=== PATIENT | male | born 1985 | race Caucasian/White ===

== ENCOUNTER 2018-08-09 15:04 | Emergency (ER) | payer OTHER ==
[~2018-08-09] VITALS: Ht 172.7 cm; Wt 127.0 kg
[2018-08-09] MEDS ORDERED: ACETAMINOPHEN 325 MG TAB ONE (17:02)
[2018-08-09] MEDS ORDERED: SODIUM CHLORIDE 0.9% 1000ML 1,000 ML ONE (17:02)
[2018-08-09] MEDS ORDERED: SODIUM CHLORIDE 0.9% 1000ML 1,000 ML IV ONE (17:15)
[2018-08-09 17:23] LABS: BASOPHILS % 0.2 % (0.0-1.0); EOSINOPHILS # (AUTO) 0.1 (0.0-0.4); EOSINOPHILS % 1.1 % (0.0-6.0); HEMATOCRIT 40.4 % (38.2-49.6); HEMOGLOBIN 13.8 g/dL (14.0-18.0); LYMPHOCYTES # (AUTO) 1.8 (1.0-3.2); LYMPHOCYTES % 27.3 % (18.0-39.1); MEAN CORPUSCULAR HEMOGLOBIN 29.3 pg (28-32); MEAN CORPUSCULAR HGB CONC 34.2 g/dL (31-35); MEAN CORPUSCULAR VOLUME 85.8 fL (81-99); MONOCYTES # (AUTO) 0.6 (0.2-0.8); MONOCYTES % 9.2 % (4.4-11.3); PLATELET COUNT 259 x10e3/uL (140-360); RED BLOOD COUNT 4.71 x10e6/uL (4.3-5.7); RED CELL DISTRIBUTION WIDTH 12.4 % (11.7-14.4)
[2018-08-09 17:24] LABS: BILIRUBIN,URINE NEGATIVE (NEGATIVE); CLARITY,URINE SL CLOUDY (CLEAR); COLOR,URINE YELLOW (YELLOW); KETONES,URINE NEGATIVE (NEGATIVE); LEUKOCYTE ESTERASE ,URINE TRACE (NEGATIVE); NITRITE,URINE NEGATIVE (NEGATIVE); PROTEIN,URINE DIPSTICK NEGATIVE (NEGATIVE); URINE UROBILINOGEN 1 mg/dL (0.2 - 1)
[2018-08-09 17:58] LABS: ALANINE AMINOTRANSFERASE 57 IU/L (0-55); ALBUMIN 3.5 g/dL (3.5-5.0); ALBUMIN/GLOBULIN RATIO 0.7 (0.8-2.0); ALKALINE PHOSPHATASE 40 IU/L (40-150); ANION GAP 15.7 mmol/L (8-16); BLOOD UREA NITROGEN 7 mg/dL (7-26); BUN/CREATININE RATIO 7 (6-25); CALCIUM 9.4 mg/dL (8.4-10.2); CARBON DIOXIDE 26 mmol/L (22-29); CHLORIDE 100 mmol/L (98-107); CREATININE, SERUM 1.07 mg/dL (0.72-1.25); EST GLOMERULAR FILTRATION RATE > 60 ML/MIN (60-); GLUCOSE 90 mg/dL (74-118); POTASSIUM 3.7 mmol/L (3.5-5.1); SODIUM 138 mmol/L (136-145)
[2018-08-09] MEDS ORDERED: AMOX TR-K CLV1 EAC2 PO (18:03)
[2018-08-09] MEDS ORDERED: AZELASTINE137 MCG/0. INH (18:03)
[2018-08-09] MEDS ORDERED: BROM/PSE/DM PO (18:03)
[2018-08-09] MEDS ORDERED: KETOROLAC TROMETHAMINE 30 MG/ML VIAL IV NR (18:08)
[2018-08-09] MEDS ORDERED: METOCLOPRAMIDE HCL 10 MG/2ML VIAL IV NR (18:15)
[2018-08-09] MEDS ORDERED: DIPHENHYDRAMINE HCL INJ 50 MG/ML VIAL IV NR (18:15)
--- NOTE | 2018-08-09 18:57 | NUR ---
Walking rounds with LILIA Becerra. No distress noted at this time.
--- NOTE | 2018-08-09 19:18 | Diagnostic Imaging Report ---
EXAMINATION: PA and lateral views of the chest. COMPARISON: None CLINICAL HISTORY: Cough and congestion DISCUSSION: Lines/tubes: None. Lungs: The lungs are well inflated and clear. There is no evidence of pneumonia or pulmonary edema. Pleura: There is no pleural effusion or pneumothorax. Heart and mediastinum: Mildly enlarged chronic silhouette. Pulmonary vasculature is normal. Bones and soft tissues: No acute bony abnormalities. Degenerative changes in the thoracic spine IMPRESSION: Mildly enlarged cardiac silhouette. Lungs and pleura are clear. Signed by: Humberto Fernández MD on 08/09/2018 7:14 PM
[2018-08-09] MEDS ORDERED: CEFTRIAXONE SOD 1 GM/NS 50 ML 50 ML IV ONE (19:30)
[2018-08-09] MEDS ORDERED: AZITHROMYCIN 250 MG TAB PO ONE (19:30)
[2018-08-09 19:50] VITALS: BP 110/76
--- NOTE | 2018-08-09 20:01 | Diagnostic Imaging Report ---
ADDENDUM #1 Please disregard the dictation error. Under the heading of Brain Sulci the following should read "appropriate for age." Under the heading of ventricles following should read "normal in size." I agree with the preliminary impression of this report. Signed by: Dr. Umberto Acevedo M.D. on 08/09/2018 9:44 PM ORIGINAL REPORT Exam: Head CT without contrast Indication: Headache worsens with cough Comparison: None Technique: Axial images were obtained from the skull base to the vertex. Coronal and sagittal images reconstructed from the axial data. Dose modulation, iterative reconstruction, and/or weight based adjustment of the mA/kV was utilized to reduce the radiation dose to as low as reasonably achievable. Intravenous contrast: None Findings: Scalp/skull: No abnormalities. Extra-axial spaces: No masses. No fluid collections. Brain sulci: Mildly prominent. Ventricles: Mild compensatory dilatation. No hydrocephalus. Parenchyma: Describe hypodensities in the supratentorial white matter are small vessel ischemic changes. No masses, hemorrhage, acute or chronic cortical vascular insults. Sellar/suprasellar region: No abnormalities. Craniocervical junction: Patent foramen magnum. No Chiari one malformation. Incidental findings: Scattered opacification of the paranasal sinuses with air-fluid levels within the frontal, ethmoid, and maxillary sinuses. Impression: 1. No intracranial abnormalities. 2. Non-specific opacification of the paranasal sinuses with air-fluid levels; recommend correlation with signs and symptoms of acute sinusitis. A preliminary report was provided by Dr. Fernández on 08/09/2018 7:57 PM. Signed by: Humberto Fernández MD on 08/09/2018 7:58 PM
== END 2018-08-09 20:11 | disposition home or self-care (01) ==
LOC: ER 15:04
DX: B17.9 Acute viral hepatitis, unspecified (principal); J01.00 Acute maxillary sinusitis, unspecified; J01.10 Acute frontal sinusitis, unspecified; F17.200 Nicotine dependence, unspecified, uncomplicated
CPT/HCPCS: 36415; 70450; 71046; 80053; 81001; 85025; 87400; 99284; J0696; J1200; J1885; J2765; J7030